=== PATIENT | male | born 1960 | race Caucasian/White ===

== ENCOUNTER 2017-08-01 22:39 | Inpatient (IN) | payer SELFPAY ==
[~2017-08-01] VITALS: Ht 175.3 cm; Wt 66.4 kg
[~2017-08-01 22:39] MED LIST: CYCL-36 PO; NAPR-576 PO
[2017-08-01] MEDS ORDERED: RESP: ALBUTEROL 2.5 MG/IPRATROPIUM 0.5 MG NEB (SCH) ONE (22:44)
[2017-08-01] MEDS ORDERED: SODIUM CHLORIDE 0.9% FLUSH 10 ML FLUSH IVF PRN (22:45)
[2017-08-01 22:47] VITALS: O2SAT 94
[2017-08-01 22:49] VITALS: BP 113/59; PULSE 91; RESP 28; TEMP 98.7; O2SAT 94
[2017-08-01] MEDS: RESP: ALBUTEROL 2.5 MG/IPRATROPIUM 0.5 MG NEB (SCH) INH (22:55)
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
[2017-08-01] MEDS ORDERED: AZITHROMYCIN INJ 500 MG in SODIUM CHLOR 0.9% 250 ML INJ 250 ML IV ONE (23:15)
[2017-08-02] VITALS (11 sets, daily range): BP systolic 105–128; BP diastolic 58–66; PULSE 65–99; RESP 16–25; TEMP 96.6–98.7; O2SAT 95–100
[2017-08-02] MEDS: RESP: ALBUTEROL 2.5 MG/3 ML NEB (SCH) INH (00:13)
[2017-08-02 00:26] LABS: BLOOD GAS BASE EXCESS -0.2 mmol/L (-2-2); BLOOD GAS CARBOXYHEMOGLOBIN 1.3 % (0-4); BLOOD GAS HCO3 23 mmol/L (22-26); BLOOD GAS METHEMOGLOBIN 0.4 % (0-2); BLOOD GAS O2 HGB SATURATION 87 % (90-100); BLOOD GAS OXYGEN CONTENT 12.6 Vol % (12.0-20.0); BLOOD GAS PCO2 32 mmHg (38-42); BLOOD GAS PO2 55 mmHG (61-120); BLOOD GAS TOTAL HGB 10.3 G/DL (12.0-16.0); TEMP CORR TO 98.6
[2017-08-02 00:27] LABS: CRITICAL VALUE YES; DRAW SITE RT RADIAL; FIO2 21 %; NUMBER OF ARTERIAL PUNCTURES 1; STAT YES; ULNAR PULSE PRESENT
[2017-08-02] MEDS ORDERED: SODIUM CHLORIDE 0.9% FLUSH 10 ML FLUSH IVF PRN (00:30)
[2017-08-02] MEDS ORDERED: cefTRIAXone INJ 1,000 MG in SODIUM CHLORIDE 0.9% INJ 100 ML IV ONE (00:30)
[2017-08-02 02:22] LABS: BICARBONATE 22.6 MEQ/L (21.0-32.0); POTASSIUM 3.8 MEQ/L (3.5-5.1)
[2017-08-02 02:44] LABS: AUTOMATED NEUTROPHIL # 2.4 TH/MM3 (1.8-7.7); BASOPHIL % 0.2 % (0.0-2.0); EOSINOPHIL % 0.1 % (0.0-4.0); HEMATOCRIT 31.9 % (39.0-51.0); LYMPH % 6.5 % (9.0-44.0); LYMPHOCYTE # 0.2 TH/MM3 (1.0-4.8); MEAN CELL VOLUME 108.4 FL (80.0-100.0); MEAN CORPUSCULAR HEMOGLOBIN 34.6 PG (27.0-34.0); MEAN CORPUSCULAR HGB CONC 31.9 % (32.0-36.0); MONO % 1.9 % (0.0-8.0); NEUT % 91.3 % (16.0-70.0); RED BLOOD COUNT 2.95 MIL/MM3 (4.50-5.90); RED CELL DISTRIBUTION WIDTH 17.4 % (11.6-17.2); WHITE BLOOD COUNT 2.6 TH/MM3 (4.0-11.0)
[2017-08-02] MEDS ORDERED: ONDANSETRON HCL 4 MG/2 ML VIAL IVP PRN (03:15)
[2017-08-02] MEDS ORDERED: MAGNESIUM HYDROXIDE SUSP 30 ML CUP PO PRN (03:15)
[2017-08-02] MEDS ORDERED: BISACODYL 10 MG SUPP RECTAL PRN (03:15)
[2017-08-02] MEDS ORDERED: SENNOSIDES 8.6 MG TAB PO PRN (03:15)
[2017-08-02] MEDS ORDERED: SODIUM CHLORIDE 0.9% FLUSH 10 ML FLUSH IV FLUSH PRN (03:15)
[2017-08-02] MEDS ORDERED: LACTULOSE SYRUP 20 GM/30 ML CUP PO PRN (03:15)
[2017-08-02] MEDS ORDERED: RESP: ALBUTEROL 2.5 MG/IPRATROPIUM 0.5 MG NEB (PRN) NEB (03:15)
[2017-08-02 03:25] LABS: HEMO FLAGS AUTO DIFF
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
[2017-08-02 03:29] LABS: PLATELET COUNT 12 TH/MM3 (150-450)
[2017-08-02 03:30] LABS: SCAN/DIFF AUTO DIFF CONFIRMED
[2017-08-02] MEDS: methylPREDNISolone SOD SUCC 40 MG/1 ML VIAL IV PUSH SCH ×4 (06:28→23:20)
[2017-08-02] MEDS: RESP: ALBUTEROL 2.5 MG/IPRATROPIUM 0.5 MG NEB (SCH) NEB ×4 (07:21→22:05)
[2017-08-02] MEDS: guaiFENesin E.R. 600 MG TAB PO SCH ×2 (08:49→22:01)
[2017-08-02] MEDS: DOCUSATE SODIUM 50 MG/SENNA 8.6 MG TAB PO SCH ×2 (08:49→21:00)
[2017-08-02] MEDS: SODIUM CHLORIDE 0.9% FLUSH 10 ML FLUSH IV FLUSH SCH ×2 (08:49→22:02)
[2017-08-02] MEDS: BUDESONIDE-FORMOTEROL 160/4.5 MCG INHALER INH SCH ×2 (09:43→22:03)
--- NOTE | 2017-08-02 12:49 | HHI.PR ---
Subjective Remarks Follow-up for COPD exacerbation and thrombocytopenia. The patient states that he's been having worsening shortness of breath for the past month. Breathing is significantly worse yesterday. He's been feeling feverish, hasn't checked his temperature. He is having cough with white sputum. He's also had bilateral leg swelling which she reports is uncomfortable, has never had this before. Denies CHF history. Admits to COPD. He had a scant amount of hemoptysis when he coughed once last week, otherwise no hemoptysis. He denies any bleeding with urination or stools. He denies any easy bruising or skin lesions. Objective Vitals Vital Signs Date Time Temp Pulse Resp B/P (MAP) Pulse Ox O2 Delivery O2 Flow Rate FiO2 08/02/17 12:33 97.9 70 20 128/62 (84) 96 08/02/17 08:21 97.9 68 18 126/58 (80) 96 08/02/17 07:24 97 21 08/02/17 06:10 98.7 72 18 116/64 (81) 100 08/02/17 05:30 08/02/17 03:00 84 21 106/66 (79) 98 Room Air 08/02/17 02:00 88 22 105/63 (77) 98 Room Air 08/02/17 01:00 99 24 113/66 (82) 100 Room Air 08/02/17 00:00 96 25 123/65 (84) 99 Room Air 08/01/17 22:56 91 28 100 Aerosol Mask 08/01/17 22:56 100 Aerosol Mask 08/01/17 22:49 98.7 91 28 113/59 (77) 94 08/01/17 22:47 94 I/O 08/01/17 08/01/17 08/01/17 08/02/17 08/02/17 08/02/17 07:00 15:00 23:00 07:00 15:00 23:00 Intake Total 350 ml Balance 350 ml Intake IV Total 350 ml # Voids 2 Result Diagram: 08/02/17 0215 08/02/17 0100 Imaging Last Impressions Chest X-Ray 08/01/17 2885 Signed Impressions: Service Date/Time: Tuesday, August 01, 2017 22:57 - CONCLUSION: 1. No active disease. Nicola Jaime MD Objective Remarks GENERAL: Well-developed well-nourished. In no acute distress. SKIN: Warm and dry. No lesions noted. HEENT: Normocephalic. Pupils equal and round. Mucous membranes pink and moist. CARDIOVASCULAR: Regular rate and rhythm. No murmur appreciated. RESPIRATORY: No accessory muscle use. Clear to auscultation. Coarse wheezing in all lung luna. GASTROINTESTINAL: Abdomen soft, non-tender, nondistended. Bowel sounds x4. MUSCULOSKELETAL: No obvious deformities. No clubbing or cyanosis. 1+ bilateral lower extremity pitting edema. NEUROLOGICAL: Awake and alert. No focal neurological deficits. Moves upper and lower extremities spontaneously. Normal speech. PSYCHIATRIC: Appropriate mood and affect; insight and judgment normal. A/P Problem List: (1) COPD (chronic obstructive pulmonary disease) ICD Code: J44.9 - Chronic obstructive pulmonary disease, unspecified Status: Acute (2) Cough ICD Code: R05 - Cough Status: Acute (3) Tobacco abuse ICD Code: Z72.0 - Tobacco use Status: Chronic (4) Thrombocytopenia ICD Code: D69.6 - Thrombocytopenia, unspecified Status: Acute (5) Hypoxia ICD Code: R09.02 - Hypoxemia Status: Acute Assessment and Plan 56-year-old male with a PMH of COPD and Tobacco Abuse who presented for SOB and was found to have thrombocytopenia COPD exacerbation with acute respiratory failure: Hypoxia on ABG on arrival. Continue w/ Solu-Medrol, DuoNeb, Symbicort, Mucinex. IV Levaquin. Sputum culture. Acapella. Tobacco cessation. Lower extremity swelling: Chest x-ray showed no acute process or edema. Check BNP and echocardiogram. Pancytopenia: WBC 2.6, hemoglobin 10.2, platelets critically low at 12. No active bleeding. Discussed with hematology, Dr. Randolph, findings concerning for leukemia, hematology to initiate workup and may need bone marrow biopsy while inpatient. Monitor CBC. DVT Prophylaxis: SCD/Teds. Discharge Planning Continue inpatient treatment of acute respiratory failure and critical thrombocytopenia. Problem Qualifiers (1) COPD (chronic obstructive pulmonary disease): Qualified Codes: J44.1 - Chronic obstructive pulmonary disease with (acute) exacerbation Anatoly Mariee Aug 02, 2017 12:49
[2017-08-02 14:31] LABS: AUTOMATED NEUTROPHIL # 2.1 TH/MM3 (1.8-7.7); HEMATOCRIT 28.6 % (39.0-51.0); HEMO FLAGS DIFF FINAL; LYMPH % 10.2 % (9.0-44.0); LYMPHOCYTE # 0.3 TH/MM3 (1.0-4.8); MEAN CELL VOLUME 106.4 FL (80.0-100.0); MEAN CORPUSCULAR HEMOGLOBIN 35.1 PG (27.0-34.0); MONO % 5.5 % (0.0-8.0); NEUT % 84.3 % (16.0-70.0); PLATELET COUNT 102 TH/MM3 (150-450); RED BLOOD COUNT 2.69 MIL/MM3 (4.50-5.90); RED CELL DISTRIBUTION WIDTH 16.6 % (11.6-17.2); WHITE BLOOD COUNT 2.5 TH/MM3 (4.0-11.0)
[2017-08-02 14:51] LABS: LDH SERUM 180 U/L (87-241)
[2017-08-02 15:33] LABS: FERRITIN 102 NG/ML (26-388); TRANSFERRIN IRON PROFILE 232 MG/DL (200-360)
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
[2017-08-02] MEDS: ACETAMINOPHEN 325 MG TAB PO PRN (21:59)
[2017-08-02] MEDS: TEMAZEPAM 7.5 MG CAP PO PRN (22:02)
[2017-08-02] MEDS: LEVOFLOXACIN 750 MG PREMIX INJ 150 ML IV SCH (23:20)
[2017-08-03] VITALS (7 sets, daily range): BP systolic 112–134; BP diastolic 55–67; PULSE 60–71; RESP 16–18; TEMP 96.3–97.9; O2SAT 95–98
[2017-08-03] MEDS: TEMAZEPAM 7.5 MG CAP PO PRN (02:46)
[2017-08-03] MEDS: methylPREDNISolone SOD SUCC 40 MG/1 ML VIAL IV PUSH SCH ×4 (05:21→23:04)
[2017-08-03] MEDS: RESP: ALBUTEROL 2.5 MG/IPRATROPIUM 0.5 MG NEB (SCH) NEB ×4 (08:22→19:55)
[2017-08-03] MEDS: DOCUSATE SODIUM 50 MG/SENNA 8.6 MG TAB PO SCH ×2 (08:45→20:13)
[2017-08-03 08:50] LABS: ALT (GPT) 48 U/L (12-78); ANION GAP 6 MEQ/L (5-15); AST (GOT) 51 U/L (15-37); BICARBONATE 22.2 MEQ/L (21.0-32.0); BLOOD UREA NITROGEN 14 MG/DL (7-18); CHLORIDE 110 MEQ/L (98-107); GLOMERULAR FILTRATION RATE 121 ML/MIN (>89); POTASSIUM 4.3 MEQ/L (3.5-5.1); SODIUM (NA) 138 MEQ/L (136-145)
[2017-08-03 08:52] LABS: BASOPHIL % 0.1 % (0.0-2.0); EOSINOPHIL % 0.2 % (0.0-4.0); HEMATOCRIT 30.2 % (39.0-51.0); LYMPH % 7.9 % (9.0-44.0); LYMPHOCYTE # 0.4 TH/MM3 (1.0-4.8); MEAN CORPUSCULAR HEMOGLOBIN 35.5 PG (27.0-34.0); MEAN CORPUSCULAR HGB CONC 33.5 % (32.0-36.0); MONO % 2.5 % (0.0-8.0); NEUT % 89.3 % (16.0-70.0); PLATELET COUNT 97 TH/MM3 (150-450); RED BLOOD COUNT 2.85 MIL/MM3 (4.50-5.90); RED CELL DISTRIBUTION WIDTH 16.8 % (11.6-17.2); WHITE BLOOD COUNT 4.5 TH/MM3 (4.0-11.0)
[2017-08-03 08:53] LABS: ALKALINE PHOSPHATASE 95 U/L (45-117); TOTAL BILIRUBIN ADULT 0.5 MG/DL (0.2-1.0)
[2017-08-03] MEDS: guaiFENesin E.R. 600 MG TAB PO SCH ×2 (09:05→20:13)
[2017-08-03] MEDS: SODIUM CHLORIDE 0.9% FLUSH 10 ML FLUSH IV FLUSH SCH ×2 (09:05→20:13)
[2017-08-03] MEDS: ACETAMINOPHEN 325 MG TAB PO PRN ×2 (09:05→16:34)
[2017-08-03] MEDS: BUDESONIDE-FORMOTEROL 160/4.5 MCG INHALER INH SCH ×2 (09:05→20:13)
[2017-08-03 09:54] LABS: HEMO FLAGS AUTO DIFF
[2017-08-03 09:55] LABS: PLATELET ESTIMATE SMEAR LOW (NORMAL); PLATELET MORPHOLOGY NORMAL (NORMAL); SCAN/DIFF AUTO DIFF CONFIRMED
--- NOTE | 2017-08-03 11:08 | PD.ONC.PN ---
Subjective Subjective Remarks Afebrile overnight. Patient complaining of persistent pain and swelling in both legs. States this has been present for several days. Also with cough/congestion. Objective Data Date Time Temp Pulse Resp B/P (MAP) Pulse Ox O2 Delivery O2 Flow Rate FiO2 08/03/17 08:00 96.6 65 16 115/55 (75) 97 08/03/17 04:00 96.9 71 17 125/67 (86) 98 08/03/17 00:00 96.6 62 18 127/60 (82) 98 08/02/17 22:08 97 21 08/02/17 20:00 96.6 69 17 124/65 (84) 99 08/02/17 16:30 97.5 65 16 116/58 (77) 95 08/02/17 12:33 97.9 70 20 128/62 (84) 96 Result Diagram: 08/03/17 0725 08/03/17 0725 Laboratory Results Laboratory Tests Test 08/02/17 12:55 08/03/17 07:25 White Blood Count 2.5 TH/MM3 4.5 TH/MM3 Red Blood Count 2.69 MIL/MM3 2.85 MIL/MM3 Hemoglobin 9.4 GM/DL 10.1 GM/DL Hematocrit 28.6 % 30.2 % Mean Corpuscular Volume 106.4 FL 106.0 FL Mean Corpuscular Hemoglobin 35.1 PG 35.5 PG Mean Corpuscular Hemoglobin Concent 33.0 % 33.5 % Red Cell Distribution Width 16.6 % 16.8 % Platelet Count 102 TH/MM3 97 TH/MM3 Mean Platelet Volume 8.4 FL 8.8 FL Neutrophils (%) (Auto) 84.3 % 89.3 % Lymphocytes (%) (Auto) 10.2 % 7.9 % Monocytes (%) (Auto) 5.5 % 2.5 % Eosinophils (%) (Auto) 0.0 % 0.2 % Basophils (%) (Auto) 0.0 % 0.1 % Neutrophils # (Auto) 2.1 TH/MM3 4.0 TH/MM3 Lymphocytes # (Auto) 0.3 TH/MM3 0.4 TH/MM3 Monocytes # (Auto) 0.1 TH/MM3 0.1 TH/MM3 Eosinophils # (Auto) 0.0 TH/MM3 0.0 TH/MM3 Basophils # (Auto) 0.0 TH/MM3 0.0 TH/MM3 CBC Comment DIFF FINAL AUTO DIFF Differential Comment AUTO DIFF CONFIRMED Iron Level 72 MCG/DL Total Iron Binding Capacity 325 MCG/DL Percent Iron Saturation 22.2 % Ferritin 102 NG/ML Lactate Dehydrogenase 180 U/L B-Type Natriuretic Peptide 183 PG/ML Vitamin B12 Level 541 PG/ML Folate 10.9 NG/ML Platelet Estimate LOW Platelet Morphology Comment NORMAL Blood Urea Nitrogen 14 MG/DL Creatinine 0.68 MG/DL Random Glucose 108 MG/DL Total Protein 7.7 GM/DL Albumin 2.2 GM/DL Calcium Level 8.4 MG/DL Alkaline Phosphatase 95 U/L Aspartate Amino Transf (AST/SGOT) 51 U/L Alanine Aminotransferase (ALT/SGPT) 48 U/L Total Bilirubin 0.5 MG/DL Sodium Level 138 MEQ/L Potassium Level 4.3 MEQ/L Chloride Level 110 MEQ/L Carbon Dioxide Level 22.2 MEQ/L Anion Gap 6 MEQ/L Estimat Glomerular Filtration Rate 121 ML/MIN Culture Results Microbiology Date/Time Source Procedure Growth Status 08/02/17 01:05 Blood Peripheral Aerobic Blood Culture Pending Received 08/02/17 01:05 Blood Peripheral Anaerobic Blood Culture Pending Received 08/02/17 01:00 Blood Peripheral Aerobic Blood Culture Pending Received 08/02/17 01:00 Blood Peripheral Anaerobic Blood Culture Pending Received Administered Medications Medications (Trade) Dose Ordered Sig/Kellie Route PRN Reason Start Time Stop Time Status Last Admin Dose Admin Methylprednisolone Sodium Succinate (SoluMEDROL INJ) 40 mg Q6HR IV PUSH 08/02/17 06:00 08/03/17 05:21 Budesonide/ Formoterol Fumarate (Symbicort 160-4.5 Inh) 2 puff Q12HR INH 08/02/17 09:00 08/03/17 09:05 Albuterol/ Ipratropium (Duoneb Neb) 1 ampule Q4HR WHILE AWAKE NEB NEB 08/02/17 08:00 08/03/17 08:22 Sodium Chloride (NS Flush) 2 ml BID IV FLUSH 08/02/17 09:00 08/03/17 09:05 Acetaminophen (Tylenol) 650 mg Q6H PRN PO FEVER/PAIN SCALE 1 TO 2 08/02/17 03:15 08/03/17 09:05 Guaifenesin (Mucinex Er) 600 mg BID PO 08/02/17 09:00 08/03/17 09:05 Levofloxacin/ Dextrose 150 ml @ 100 mls/hr Q24H IV 08/02/17 23:00 08/02/17 23:20 Temazepam (Restoril) 7.5 mg HS PRN PO INSOMNIA/MAY REPEAT X1 DOSE 08/02/17 12:45 08/03/17 02:46 Objective Remarks GENERAL: Middle aged male upright in bed in nad. SKIN: Warm and dry. HEAD: Normocephalic. EYES: No scleral icterus. No injection or drainage. NECK: Supple, trachea midline. CARDIOVASCULAR: Regular rate and rhythm RESPIRATORY: scattered rhonchi. inspiratory and expiratory wheezing GASTROINTESTINAL: Abdomen soft, non-tender, nondistended. EXTREMITIES: No cyanosis. + BLE edema NEUROLOGICAL: No obvious focal deficit. Awake, alert, and oriented x3. Assessment/Plan Problem List: (1) Pancytopenia ICD Codes: D61.818 - Other pancytopenia Plan: --unexplained pancytopenia, most profound is his lymphocytopenia and thrombocytopenia, also with macrocytic anemia --presenting symptoms were progressive difficulty breathing and lower extremity edema. --peripheral smear showed no dysplastic or dysmorphic findings to suggest a primary bone marrow disorder. Clinical exam indicates no splenomegaly either. --HIV and hepatitis panel pending --serum iron studies, serum folic acid and serum vitamin B12 levels are all normal --may require bone marrow biopsy should this workup be negative. --CT scan of the thorax -->benign Assessment 56y/o male with unexplained pancytopenia. h/o Asthma. Tobaccoism; 1.5 packs per day since he was 13 years old. IV drug abuse. Risky sexual behavior Plan 1. await HIV and hepatitis testing 2. monitor CBC--counts seem to be recovering. 3. check lower extremity ultrasound Attending Statement The exam, history, and the medical decision-making described in the above note were completed with the assistance of the mid-level provider. I reviewed and agree with the findings presented. I attest that I had a [id number] encounter with the patient on the same day, and personally performed and documented my assessment and findings in the medical record. Pt seen and examined, US dopper of the lower extremities was negative for DVT, he reports severe pain in the legs, APAP alone does not help much. Per the nurses he was prepared to leave AMA if he did not get anything stronger. I started him on naproxen for the pain. CT chest reviewed; appears to be normal. His counts are somewhat improved. HIV and hepatitis panel is pending. He does not really need to be in the hospital to wait for these results to come in so long as he has reliable out patient follow up. Adelina Chand Aug 03, 2017 11:08 Jono Randolph MD Aug 03, 2017 20:22
[2017-08-03] MEDS: NAPROXEN 250 MG TAB PO PRN (16:31)
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
[2017-08-03] MEDS ORDERED: FUROSEMIDE 40 MG/4 ML VIAL IV PUSH ONE (19:15)
[2017-08-03] MEDS: NICOTINE 14 MG/24 HR PATCH T-DERMAL SCH (19:15)
--- NOTE | 2017-08-03 19:16 | HHI.PR ---
Subjective Remarks Follow-up on shortness of breath. Discussed with nursing, patient requesting stronger pain medication the naproxen. Patient himself says that he was previously swollen all over including his face and much worse in his legs in today, says that the swelling in his legs has gone down but it hurts at the ankles. Says he is tolerating meals fine Objective Vital Signs Date Time Temp Pulse Resp B/P (MAP) Pulse Ox O2 Delivery O2 Flow Rate FiO2 08/03/17 16:00 96.8 60 18 112/60 (77) 97 08/03/17 12:00 96.3 66 18 115/59 (77) 96 08/03/17 08:00 96.6 65 16 115/55 (75) 97 08/03/17 04:00 96.9 71 17 125/67 (86) 98 08/03/17 00:00 96.6 62 18 127/60 (82) 98 08/02/17 22:08 97 21 08/02/17 20:00 96.6 69 17 124/65 (84) 99 I/O 08/02/17 08/02/17 08/02/17 08/03/17 08/03/17 08/03/17 06:59 14:59 22:59 06:59 14:59 22:59 Intake Total 350 ml 840 ml Balance 350 ml 840 ml Intake Oral 840 ml IV Total 350 ml # Voids 2 4 # Bowel Movements 0 Result Diagram: 08/03/17 0725 08/03/17 0725 Objective Remarks Gen.: No acute distress, lying in bed Respiratory: Unlabored breathing Extremities: Trace very minimal edema in lower extremities the patient is tender to palpation all throughout lower shaft and at ankles, has intact sensation to pinprick Cardiovascular: Regular rate rhythm, no murmurs, no facial edema A/P Assessment and Plan 1. COPD: Chronic Respiratory Failure w/ Acute Exacerbation. Improved significantly, now on room air , we'll switch to oral steroids today, DuoNeb, Symbicort, Mucinex. 2. Cough: Reports subjective fever, chill and productive cough w/ white- colored sputum. . continue w/ IV Levaquin to cover for possible Atypical PNA. awaiting Sputum Cultures. 3. LE edema - mild today, awaiting echocardiogram results, will raise foot of bed, apply ice, give one-time dose of Lasix, could be secondary to cardiovascular, hepatic insufficiency; unlikely renal since function looks okay but will obtain urine protein. We'll replace regular Tylenol w/ tramadol+ tylenol combo. US neg for DVTs. 4. Tobacco Abuse: starting nicoderm. 5. Lymphocytopenia and thrombocytopenia - hematology oncology managing, awaiting further lab workup Johnny Gatica MD Aug 03, 2017 19:16
[2017-08-03] MEDS: traMADol/ACETAMINOPHEN 37.5/325 1 TAB PO PRN (20:14)
[2017-08-03] MEDS: LEVOFLOXACIN 750 MG PREMIX INJ 150 ML IV SCH (23:04)
[2017-08-04] VITALS (7 sets, daily range): BP systolic 113–139; BP diastolic 58–78; PULSE 51–70; RESP 16–18; TEMP 96.5–98.4; O2SAT 94–98
[2017-08-04] MEDS ORDERED: HYDROmorphone HCL PF 1 MG/ML VIAL IV PUSH ONE
[2017-08-04] MEDS: methylPREDNISolone SOD SUCC 40 MG/1 ML VIAL IV PUSH SCH ×2 (05:29→11:45)
[2017-08-04] MEDS: RESP: ALBUTEROL 2.5 MG/IPRATROPIUM 0.5 MG NEB (SCH) NEB ×2 (08:30→12:03)
[2017-08-04] MEDS: guaiFENesin E.R. 600 MG TAB PO SCH (08:39)
[2017-08-04] MEDS: SODIUM CHLORIDE 0.9% FLUSH 10 ML FLUSH IV FLUSH SCH (08:39)
[2017-08-04] MEDS: NAPROXEN 250 MG TAB PO PRN (08:39)
[2017-08-04] MEDS: NICOTINE 14 MG/24 HR PATCH T-DERMAL SCH (08:39)
[2017-08-04] MEDS: traMADol/ACETAMINOPHEN 37.5/325 1 TAB PO PRN (08:40)
[2017-08-04] MEDS: DOCUSATE SODIUM 50 MG/SENNA 8.6 MG TAB PO SCH (08:41)
[2017-08-04] MEDS: BUDESONIDE-FORMOTEROL 160/4.5 MCG INHALER INH SCH (08:41)
[2017-08-04] MEDS ORDERED: REMOVE OLD PATCH T-DERMAL SCH (09:00)
--- NOTE | 2017-08-04 12:01 | ECHRPT ---
Indication: chronic pulm heart dis CONCLUSIONS The left ventricular systolic function is low normal with an estimated ejection fraction in the rang e of 50- 55%. Wall thickness is normal. Normal left ventricular size. Mild mitral valve regurgitation. No mitral valve stenosis. There is mild tricuspid valve regurgitation. There is estimated moderate pulmonary hypertension present (range 50-60 mmHg). The pulmonary valve is not well visualized. BP: / HR: Rhythm: MEASUREMENTS (Male / Female) Normal Values Technical Quality:Good 2D ECHO LV Diastolic Diameter PLAX 5.0 cm 4.2 - 5.9 / 3.9 - 5.3 cm LV Systolic Diameter PLAX 3.9 cm IVS Diastolic Thickness 1.0 cm 0.6 - 1.0 / 0.6 - 0.9 cm LVPW Diastolic Thickness 0.7 cm 0.6 - 1.0 / 0.6 - 0.9 cm LV Relative Wall Thickness 0.4 RV Internal Dim ED PLAX 3.8 cm M-MODE Aortic Root Diameter MM 3.8 cm LA Systolic Diameter MM 4.0 cm LA Ao Ratio MM 1.1 AV Cusp Separation MM 2.3 cm DOPPLER LV E' Lateral Velocity 10.3 cm/s LV E' Septal Velocity 7.5 cm/s TR Peak Velocity 330.0 cm/s TR Peak Gradient 43.6 mmHg FINDINGS LEFT VENTRICLE The left ventricular systolic function is low normal with an estimated ejection fraction in the rang e of 50- 55%. Wall thickness is normal. Normal left ventricular size. RIGHT VENTRICLE Normal right ventricular size and systolic function. LEFT ATRIUM The left atrial size is normal. RIGHT ATRIUM The right atrial size is normal. ATRIAL SEPTUM Normal atrial septal thickness without atrial level shunting by limited color doppler interrogation. AORTA The aortic root and proximal ascending aorta are normal in size on limited imaging. MITRAL VALVE Mild mitral valve regurgitation. No mitral valve stenosis. AORTIC VALVE Trileaflet aortic valve. No aortic valve stenosis or regurgitation. TRICUSPID VALVE Structurally normal tricuspid valve. There is mild tricuspid valve regurgitation. There is estimated moderate pulmonary hypertension present (range 50-60 mmHg). PULMONARY VALVE The pulmonary valve is not well visualized. VESSELS The inferior vena cava is normal in size. PERICARDIUM No pericardial effusion. Derrell Martin MD (Electronically Signed) Final Date:04 August 2017 12:00
[2017-08-04] MEDS ORDERED: PRED10PA2 PO (14:31)
[2017-08-04] MEDS ORDERED: ALBU6.7H INH (14:31)
[2017-08-04] MEDS ORDERED: FURO20TA PO (14:31)
[2017-08-04] MEDS ORDERED: LEVO750T3 PO (14:31)
[2017-08-04] MEDS ORDERED: GABA300C5 PO (14:31)
[2017-08-04] MEDS ORDERED: SYMB80AE INH (14:31)
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
--- NOTE | 2017-08-04 14:35 | HHI.DS ---
Discharge Summary Admission Date Aug 02, 2017 at 10:49 Discharge Date: Aug 04, 2017 Admitting Diagnosis COPD, Hypoxia (1) COPD (chronic obstructive pulmonary disease) ICD Code: J44.9 - Chronic obstructive pulmonary disease, unspecified Status: Acute (2) Cough ICD Code: R05 - Cough Status: Chronic (3) Tobacco abuse ICD Code: Z72.0 - Tobacco use Status: Chronic (4) Thrombocytopenia ICD Code: D69.6 - Thrombocytopenia, unspecified Status: Acute (5) Hypoxia ICD Code: R09.02 - Hypoxemia Status: Acute Procedures none Brief History - From Admission This is a 56-year-old male with a PMH of COPD and Tobacco Abuse who was brought to the ER by EMS secondary to complaints of SOB. Upon EMS arrival, patient noted to be in significant resp distress w/ wheezing, O2 sat 92% on RA, s/p Solu -Medrol and DuoNeb prior to arrival. Pt reports symptoms have been getting progressively worse over the last 1-2wks. Reports subjective fever/chills and productive cough w/ white-colored sputum. States he has been unable to obtain his inhalers for "a long time" due to financial reasons. On arrival, BP 113/59 , HR 91, O2 sat 94% on RA, Afebrile. CBC pending. Chemistry essentially unremarkable except for BS 148. ABG with pH 7.47, PCO2 32, PO2 55, O2 sat 87% on RA. CXR with no acute findings. S/p Rocephin/Zithro and DuoNeb in ER w/ some improvement. CBC/BMP: 08/03/17 0725 08/03/17 0725 Significant Findings Laboratory Tests Test 08/02/17 00:08 08/02/17 01:00 08/02/17 02:15 08/02/17 12:55 Blood Gas Oxygen Saturation 87 % (90-100) Arterial Blood pH 7.47 (7.380-7.420) Arterial Blood Partial Pressure CO2 32 mmHg (38-42) Arterial Blood Partial Pressure O2 55 mmHG (61-120) Blood Gas Hemoglobin 10.3 G/DL (12.0-16.0) Random Glucose 148 MG/DL (74-106) Calcium Level 8.0 MG/DL (8.5-10.1) White Blood Count 2.6 TH/MM3 (4.0-11.0) 2.5 TH/MM3 (4.0-11.0) Red Blood Count 2.95 MIL/MM3 (4.50-5.90) 2.69 MIL/MM3 (4.50-5.90) Hemoglobin 10.2 GM/DL (13.0-17.0) 9.4 GM/DL (13.0-17.0) Hematocrit 31.9 % (39.0-51.0) 28.6 % (39.0-51.0) Mean Corpuscular Volume 108.4 FL (80.0-100.0) 106.4 FL (80.0-100.0) Mean Corpuscular Hemoglobin 34.6 PG (27.0-34.0) 35.1 PG (27.0-34.0) Mean Corpuscular Hemoglobin Concent 31.9 % (32.0-36.0) Red Cell Distribution Width 17.4 % (11.6-17.2) Platelet Count 12 TH/MM3 (150-450) 102 TH/MM3 (150-450) Neutrophils (%) (Auto) 91.3 % (16.0-70.0) 84.3 % (16.0-70.0) Lymphocytes (%) (Auto) 6.5 % (9.0-44.0) Lymphocytes # (Auto) 0.2 TH/MM3 (1.0-4.8) 0.3 TH/MM3 (1.0-4.8) B-Type Natriuretic Peptide 183 PG/ML (0-100) Test 08/03/17 07:25 Red Blood Count 2.85 MIL/MM3 (4.50-5.90) Hemoglobin 10.1 GM/DL (13.0-17.0) Hematocrit 30.2 % (39.0-51.0) Mean Corpuscular Volume 106.0 FL (80.0-100.0) Mean Corpuscular Hemoglobin 35.5 PG (27.0-34.0) Platelet Count 97 TH/MM3 (150-450) Neutrophils (%) (Auto) 89.3 % (16.0-70.0) Lymphocytes (%) (Auto) 7.9 % (9.0-44.0) Lymphocytes # (Auto) 0.4 TH/MM3 (1.0-4.8) Platelet Estimate LOW (NORMAL) Random Glucose 108 MG/DL (74-106) Albumin 2.2 GM/DL (3.4-5.0) Calcium Level 8.4 MG/DL (8.5-10.1) Aspartate Amino Transf (AST/SGOT) 51 U/L (15-37) Chloride Level 110 MEQ/L (98-107) PE at Discharge No acute distress, sitting in chair Respiratory: Moderate expiratory wheezing but unlabored breathing, no conversive dyspnea, Extremities: Very subtle lower extremity edema with no pain on palpation, no cyanosis Cardiac vessel: No JVD Hospital Course Patient was admitted, started on IV steroids. Hematology oncology was consulted for the severe thrombocytopenia and lymphocytopenia which improved quite spontaneously and rapidly. Further blood work was obtained such as HIV and hepatitis markers. Patient's respiratory status had stabilized to baseline. He had complained about lower extremity edema, ultrasounds were negative for DVT. Patient was saturating well on room air and denied any chest pain on last day of discharge. Patient was given some Lasix with improvement in his lower extremity edema still complained of pain. Patient had blood cultures that were drawn due to his history of drug use, out of the 2 specimens that were obtained, one was growing gram-positive cocci resembling Corynebacterium which in his case with the clinical picture was very suggestive of a contaminant since he was afebrile with no chest pain while he was here inpatient. It was related to the patient with his history of drug use he would have a higher pain threshold and that he would need to do his best to take low- dose pain medication as sparingly as possible. It was explained to him very thoroughly that he needed to follow-up with both hematology as well as a regular doctor to check his blood work particularly since he was on a diuretic as well as to follow-up on the hematology above where he had obtained while he was here inpatient. Patient has been maximal benefit from hospitalization and is clinically stable for discharge. Pt Condition on Discharge: Stable Discharge Disposition: Discharge Home Discharge Time: > 30 minutes Discharge Instructions Follow up Referrals: Oncology/Hematology - 10 Days with Jono Randolph MD PCP Follow-up - 1 Week New Medications: Acetaminophen-Codeine (Tylenol-Codeine #3) 300-30 mg Tab 1 TAB PO Q6HR PRN for PAIN, #20 TAB 0 Refills Albuterol 6.7 GM Inh (Proventil Hfa 6.7 GM Inh) 90 Mcg/Act Aer 2 PUFF INH Q4-6H PRN for SHORTNESS OF BREATH, #1 INHALER 0 Refills Budesonide-Formoterol Inh (Symbicort Inh) 80-4.5 Mcg/Act Aero 2 PUFF INH Q12HR for Asthma Management, #1 INHALER 0 Refills Furosemide (Furosemide) 20 Mg Tab 20 MG PO DAILY for fluid , #30 TAB 0 Refills Gabapentin (Gabapentin) 300 Mg Cap 300 MG PO HS for Pain Management, #30 CAP 0 Refills Levofloxacin (Levofloxacin) 750 Mg Tablet 750 MG PO DAILY for Infection, #7 TAB 0 Refills Nicotine Patch (Nicoderm CQ Patch) 14 Mg/24 Hr Patch 14 MG T-DERMAL DAILY for Smoking Cessation, #30 PATCH 0 Refills Prednisone (48) 10 mg tab Dose Pack (Prednisone (48) 10 mg tab Dose Pack) 10 Mg Dspk 10 MG PO DIRECTED for Inflammation, #1 DSPK 0 Refills Johnny Gatica MD Aug 04, 2017 14:35
[2017-08-04] MEDS ORDERED: NICO14DI4 T-DERMAL (14:38)
[2017-08-04] MEDS ORDERED: TYLETAB34 PO (14:48)
== END 2017-08-04 17:04 | disposition home or self-care (01) | DRG 189 ==
LOC: NEPE 22:39 → NEDA 08-02 02:58 → NEPFCDU 08-02 05:33 → OBSVTOIN 08-02 10:49 → HOCA 08-02 16:16
PROVIDERS: ADMIT Hospitalist; ATTEND Hospitalist
DX: J96.21 Acute and chronic respiratory failure with hypoxia (principal); D61.818 Other pancytopenia; J44.1 Chronic obstructive pulmonary disease with (acute) exacerbation; F17.210 Nicotine dependence, cigarettes, uncomplicated; Z59.0 Homelessness
CPT/HCPCS: 36600; 71010; 71250; 80048; 80053; 80074; 82607; 82728; 82746; 82805; 83540; 83550; 83615; 83880; 85025; 86703; 86850; 86900; 86901; 87040; 87205; 93306; 93970; 94640; 94664; 94667; 94668; 96365; 96367; J0456; J0696; J1170; J1940; J1956; J2920; J7050; J7613